=== PATIENT | female | born 1960 | race Caucasian/White ===

== ENCOUNTER 2020-07-15 09:37 | Emergency (ER) | payer MEDICAID, SELFPAY ==
[~2020-07-15] VITALS: Ht 152.4 cm; Wt 58.1 kg
[2020-07-15 09:52] VITALS: BP_SYST 114
[2020-07-15 10:40] VITALS: BP_SYST 114
== END 2020-07-15 19:49 | disposition home or self-care (01) ==
LOC: SED 09:37
DX: B34.9 Viral infection, unspecified (principal); R50.9 Fever, unspecified
CPT/HCPCS: 86710; 99283; U0003; C9803

== ENCOUNTER 2021-08-03 10:10 | Emergency (ER) | payer MEDICAID, SELFPAY ==
[~2021-08-03] VITALS: Ht 152.4 cm; Wt 72.6 kg
--- NOTE | 2021-08-03 10:10 | NUR ---
PT PLACED IN OUTSIDE TENT AND TRIAGED. WILL ASSUME CARE
--- NOTE | 2021-08-03 10:15 | NUR ---
PT STATES FEVERS AND VOMITING SINCE YESTERDAY, JUST NOT FEELING GOOD.
--- NOTE | 2021-08-03 10:17 | NUR ---
Note brian in [facility] - 08/03/21 at 1049 by LUZ MARIA PT STATES THAT SINCE LAST NIGHT, SHE HAS HAD LOW GRADE FEVER WITH VOMITING.
--- NOTE | 2021-08-03 10:17 | NUR ---
Note [email or web address] in ED - 08/03/21 at 1048 by LUZ MARIA PT STATES SHE HAS BEEN SICK SINCE YESTERDAY, HEADACHES, BODY ACHES, SORE THROAT AND VOMITING. PT STATES SHE IS 14 WEEKS AND IS UNVACCINATED.
--- NOTE | 2021-08-03 10:20 | NUR ---
DR CHAPARRO OUT TO TRIAGE TENT FOR EVALUATION
[2021-08-03 10:34] VITALS: BP_SYST 132
[2021-08-03 11:19] LABS: BASOPHILS % (AUTO) 0.6 % (0.0-2.0); EOSINOPHILS % (AUTO) 0.1 % (0.0-4.0); HEMATOCRIT 36.2 % (36-48); LYMPHOCYTES # (AUTO) 0.7 K/uL (1.0-5.5); LYMPHOCYTES % (AUTO) 9.5 % (20.5-51.5); MEAN CORPUSCULAR HEMOGLOBIN 28 pg (27-31); MEAN CORPUSCULAR HGB CONC 33 % (32-36); MEAN CORPUSCULAR VOLUME 86 fL (79.0-98.0); MONOCYTES # (AUTO) 0.3 K/uL (0.0-1.0); MONOCYTES % (AUTO) 4.2 % (1.7-9.3); NEUTROPHILS # (AUTO) 6.3 K/uL (1.8-7.7); NEUTROPHILS % (AUTO) 85.6 % (40.0-70.0); PLATELET COUNT (AUTO) 246 K/uL (130-430); RED BLOOD CELL COUNT(AUTO) 4.21 MIL/uL (4.2-6.2); RED CELL DISTRIBUTION WIDTH 13.2 % (9.0-15.0); WHITE BLOOD COUNT (AUTO) 7.4 K/uL (4.8-10.8)
[2021-08-03 11:29] LABS: CALCIUM 8.2 mg/dL (8.4-11.0); CREATININE 0.81 mg/dL (0.55-1.30); POTASSIUM 3.8 mmol/L (3.5-5.1)
[2021-08-03] MEDS: ONDANSETRON HCL 4 MG/2 ML VIAL IVP ONE (11:36)
[2021-08-03] MEDS: NACL 0.9% 1,000 ML IV ONE (11:39)
[2021-08-03 11:47] LABS: ALBUMIN 3.7 g/dL (3.4-4.8); TOTAL BILIRUBIN 0.3 mg/dL (0.0-1.0)
[2021-08-03] MEDS ORDERED: ONDA-8 TL (12:29)
[2021-08-03] MEDS ORDERED: ZIT250 PO (13:03)
--- NOTE | 2021-08-03 14:17 | NUR ---
pt in room 8, POC reviewed
[2021-08-03] MEDS: CASIRIVIMAB 600 MG, IMDEVIMAB 600 MG in NS 250 ML IV ONE (14:55)
--- NOTE | 2021-08-03 16:27 | NUR ---
IV infusion complete, temp 99.2, no request
[2021-08-03] MEDS: ACETAMINOPHEN 325 MG TABLET PO ONE (16:30)
[2021-08-03 18:00] VITALS: BP_SYST 116
--- NOTE | 2021-08-03 18:00 | NUR ---
Patient given written and verbal discharge instructions and verbalizes understanding. ER Dr. Cisneros discussed with patient the results and treatment provided. Patient in stable condition. ID arm band removed. IV catheter removed intact and dressing applied, no active bleeding. Rx of Zofran and Zithromax given. Patient educated on pain management and to follow up with PMD. Pain Scale 0. Opportunity for questions provided and answered. Medication side effect fact sheet provided.
== END 2021-08-03 18:00 | disposition home or self-care (01) ==
LOC: SED 10:10
DX: U07.1 COVID-19 (principal); R11.10 Vomiting, unspecified; Z79.899 Other long term (current) drug therapy
CPT/HCPCS: 36415; 80053; 83690; 85025; 87426; 96361; 96374; 99285; J2405; J7030; J7050; M0243; Q0243